=== PATIENT | female | born 1950 | race Caucasian/White ===

== ENCOUNTER 2022-01-07 12:25 | Inpatient (IN) ==
[~2022-01-07 12:25] MED LIST: GLUCAGON 1 MG VIAL IM PRN
[2022-01-07] MEDS ORDERED: DEXTROSE 10% 250 ML BAG IV PRN (12:30)
[2022-01-07 13:11] LABS: Basophils % 0.2 % (0.0-0.8); Eosinophils # 0.1 10*3/uL (0.0-0.87); Eosinophils % 0.9 % (0.00-10.9); Hematocrit 41.4 VOL% (35.7-47.0); Hemoglobin 13.7 GM/DL (12.0-16.0); Immature Granulocytes % 0.3 %; Immature Granulocytes Absolute 0.02 #; Lymphocytes # 1.3 10*3/uL (1.4-4.0); Lymphocytes % 23.2 % (21.3-54.2); Mean Corpuscular HGB Conc 33.1 GM/DL (32-36); Monocytes # 0.4 10*3/uL (0.11-0.8); Monocytes % 7.5 % (1.7-12.7); Neutrophils % 67.9 % (38.7-73.9); Platelet Count 208 T/CUMM (130-400); Red Cell Distribution Width 12.7 % (9.3-17.3); White Blood Count 5.7 T/CUMM (4-12)
[2022-01-07 13:36] LABS: Albumin 3.7 G/DL (3.4-5.0); Calcium 8.7 MG/DL (8.5-10.1); Osmolality,Calculated 281.4 MOS/KG (273-304); Total Protein 6.6 G/DL (6.4-8.2)
[2022-01-07] MEDS ORDERED: CLORAZEPATE 3.75 MG TABLET PO PRN (16:55)
[2022-01-07] MEDS: SODIUM CHLORIDE 0.9% 1,000 ML IV SCH (17:16)
[2022-01-07] MEDS: CHLORHEXIDINE 4% SOLN 118 ML BOTTLE TOP SCH ×2 (17:16→22:06)
[2022-01-07 18:28] LABS: Arterial Base Excess iSTAT 0 MMOL/L (-2.5-2.5); Arterial Bicarbonate iSTAT 24.7 MMOL/L (20-26); Arterial O2 Saturation iSTAT 96 % (95-100); Arterial PCO2 iSTAT 39 MM HG (35-48); Arterial PO2 iSTAT 81 MM HG (80-95); Arterial Total CO2 iSTAT 26 MMO/L (23-27); Arterial pH iSTAT 7.416 (7.35-7.45)
[2022-01-07] MEDS: CHLORHEXIDINE 0.12% ORAL RINSE 60 ML BOTTLE SWISH/SPIT SCH ×2 (18:48→20:33)
[2022-01-07] MEDS ORDERED: ACETAMINOPHEN 325 MG TABLET PO PRN (19:47)
[2022-01-07] MEDS ORDERED: PANTOPRAZOLE 40 MG TABLET PO SCH (21:00)
[2022-01-08] MEDS ORDERED: VANCOMYCIN 1,000 MG VIAL ONE (04:16)
[2022-01-08] MEDS: CHLORHEXIDINE 4% SOLN 118 ML BOTTLE TOP SCH (04:20)
[2022-01-08] MEDS ORDERED: VANCOMYCIN INJ 1,000 MG in SODIUM CHLORIDE 0.9% 250 ML IV ONE (05:00)
[2022-01-08] MEDS ORDERED: NITROGLYCERIN DRIP 50 MG/250 ML BOTTLE IV ONE (05:29)
[2022-01-08] MEDS ORDERED: PHENYLEPHRINE DRIP 20 MG/250 ML PREMIX IV ONE (05:34)
[2022-01-08] MEDS ORDERED: VECURONIUM 10 MG VIAL IV ONE ×5 (05:38→07:57)
[2022-01-08] MEDS ORDERED: CALCIUM CHLORIDE 1,000 MG/10 ML VIAL IV ONE ×2 (05:38→09:23)
[2022-01-08] MEDS ORDERED: AMINOCAPROIC ACID 5,000 MG/20 ML VIAL ONE (05:38)
[2022-01-08] MEDS ORDERED: ETOMIDATE 40 MG/20 ML VIAL IV ONE (05:38)
[2022-01-08] MEDS ORDERED: LIDOCAINE 2% 5 ML VIAL ONE ×2 (05:38→10:01)
[2022-01-08] MEDS ORDERED: SUFentanil 250 MCG/5 ML AMP ONE ×3 (05:39→07:59)
[2022-01-08] MEDS ORDERED: MIDAZOLAM 10 MG/2 ML VIAL ONE ×4 (05:39→07:59)
[2022-01-08] MEDS ORDERED: SEVOFLURANE 1 UNIT/15 MINUTE INH ONE (05:41)
[2022-01-08] MEDS ORDERED: SODIUM CHLORIDE 0.9% 250 ML IV ONE ×2 (05:48→08:47)
[2022-01-08] MEDS ORDERED: LACTATED RINGERS 1,000 ML IV ONE ×2 (05:48→13:00)
[2022-01-08] MEDS ORDERED: SODIUM CHLORIDE 0.9% 1,000 ML IV ONE (05:48)
[2022-01-08] MEDS ORDERED: PANTOPRAZOLE 40 MG TABLET PO ONE (06:00)
[2022-01-08] MEDS ORDERED: DIAZEPAM 5 MG TABLET PO ONE (06:00)
[2022-01-08] MEDS ORDERED: MINERAL OIL/PETROLATUM OPH OINT 3.5 GM TUBE ONE (06:10)
[2022-01-08] MEDS ORDERED: ePHEDrine 50 MG/ML VIAL ONE (07:18)
[2022-01-08 07:32] LABS: ABG Base Excess 0.6 MMOL/L (-2.5-2.5); ABG Oxygen Saturation 99.6 % (95-100); ABG PCO2 44.1 MM HG (35-48); ABG PH 7.379 (7.35-7.45); Glucose Heart Surgery 120 MG/DL (74-106); Hematocrit Heart Surgery 37.9 PERCENT (37-47); Hemoglobin Heart Surgery 12.3 G/DL (12.0-16.0); Ionized Calcium Arterial 1.14 MMOL/L (1.21-1.46); PCO2 Patient Temp Arterial 44.1 MMHG; PH Patient Temp Arterial 7.379; Patient Temperature 37 CELCIUS; Potassium Heart/CVR 3.4 MMOL/L (3.5-5.1); Sodium Heart/CVR 142 MMOL/L (135-145)
[2022-01-08 07:35] LABS: Bacteria,Urine Occasional /HPF (Few); Bilirubin,Urine Negative (Negative); Glucose,Urine (UA) Negative (Negative); Ketones,Urine Negative (Negative); Mucus,Urine Occasional /LPF (Occasional); Nitrite,Urine Negative (Negative); Protein,Urine Negative (Negative); RBC,Urine 2 /HPF (0-4); Urine Appearance Clear (Clear); Urine Color Yellow (Yellow); Urine pH 6.5 (4.5-8.0)
[2022-01-08 07:36] LABS: Blood, Urine Trace mg/dL (Negative); Urine Urobilinogen 0.2 eU/dL (<2.0)
[2022-01-08] MEDS ORDERED: AMIODARONE 150 MG/3 ML VIAL ONE ×3 (08:03→08:50)
[2022-01-08] MEDS ORDERED: POTASSIUM CHLORIDE RIDER 20 MEQ/100 ML PREMIX IV ONE (08:13)
[2022-01-08] MEDS ORDERED: SODIUM BICARBONATE 50 MEQ/50 ML VIAL IV ONE ×2 (08:13→10:03)
[2022-01-08] MEDS ORDERED: NITROPRUSSIDE 50 MG/2 ML VIAL ONE (08:13)
[2022-01-08] MEDS ORDERED: PHENYLEPHRINE DRIP 40 MG/250 ML PREMIX IV ONE (08:14)
[2022-01-08] MEDS ORDERED: CALCIUM CHLORIDE 1,000 MG/10 ML SYRINGE IV ONE (08:14)
[2022-01-08 08:34] LABS: Hematocrit Heart Surgery 27.8 PERCENT (37-47); PCO2 Patient Temp Venous 35.2 MM HG; PH Patient Temp Venous 7.469; PO2 Patient Temp Venous 41.1 MM HG; Potassium Heart/CVR 3.8 MMOL/L (3.5-5.1); VBG Base Excess 2.1 MEQ/L (0-4); VBG Oxygen Saturation 80.6 %; VBG PCO2 36.9 MMHG (41-51); VBG PH 7.454; VBG Total CO2 23.9 MMOL/L
[2022-01-08 09:02] LABS: Hematocrit Heart Surgery 30.3 PERCENT (37-47); Hemoglobin Heart Surgery 9.8 G/DL (12.0-16.0); PCO2 Patient Temp Venous 31.3 MM HG; PH Patient Temp Venous 7.51; PO2 Patient Temp Venous 35.9 MM HG; Potassium Heart/CVR 3.6 MMOL/L (3.5-5.1); VBG Base Excess 2.4 MEQ/L (0-4); VBG HCO3 26.2 MEQ/L (24-28); VBG Oxygen Saturation 81.2 %; VBG PCO2 36.1 MMHG (41-51); VBG PH 7.465; VBG PO2 44.3 MMHG (17-40); VBG Total CO2 23.7 MMOL/L
[2022-01-08] MEDS ORDERED: HEPARIN/NACL 0.9% 2 UNITS/ML 1,000 UNIT/500 ML BAG IV ONE (09:23)
[2022-01-08] MEDS ORDERED: AMIODARONE INJ 450 MG in DEXTROSE 5% 241 ML IV SCH (09:30)
[2022-01-08 09:55] LABS: ABG Base Excess 1.1 MMOL/L (-2.5-2.5); ABG HCO3 25.5 MMOL/L (20-26); ABG PCO2 31.9 MM HG (35-48); ABG PH 7.484 (7.35-7.45); ABG TCO2 21.5 MMOL/L (23-27); Glucose Heart Surgery 215 MG/DL (74-106); Hematocrit Heart Surgery 33.2 PERCENT (37-47); Hemoglobin Heart Surgery 10.8 G/DL (12.0-16.0); Ionized Calcium Arterial 1.26 MMOL/L (1.21-1.46); PCO2 Patient Temp Arterial 31.9 MMHG; PH Patient Temp Arterial 7.484; Patient Temperature 37 CELCIUS; Potassium Heart/CVR 3.6 MMOL/L (3.5-5.1); Sodium Heart/CVR 139 MMOL/L (135-145)
[2022-01-08] MEDS ORDERED: ALBUMIN 25% 25 GM/100 ML VIAL IV ONE (10:00)
[2022-01-08] MEDS ORDERED: MAGNESIUM SULFATE 5 GM/10 ML VIAL IV ONE (10:01)
[2022-01-08] MEDS ORDERED: HEPARIN 10,000 UNIT/10 ML VIAL ONE (10:02)
[2022-01-08] MEDS ORDERED: VECURONIUM 10 MG VIAL IV PRN ×2 (10:02)
[2022-01-08] MEDS ORDERED: ONDANSETRON 4 MG/2 ML VIAL IV PRN (10:02)
[2022-01-08] MEDS ORDERED: INSULIN REGULAR DRIP 100 ML IV SCH (10:02)
[2022-01-08] MEDS ORDERED: CALCIUM CHLORIDE 1,000 MG/10 ML SYRINGE IV PRN (10:02)
[2022-01-08] MEDS ORDERED: MIDAZOLAM 10 MG/2 ML VIAL IV PRN (10:02)
[2022-01-08] MEDS ORDERED: CHLORHEXIDINE 4% SOLN 118 ML BOTTLE TOP PRN (10:02)
[2022-01-08] MEDS ORDERED: DEXTROSE 5% KCL 20 MEQ 20 MEQ/1,000 ML BAG IV ONE (10:02)
[2022-01-08] MEDS ORDERED: NITROPRUSSIDE 100 MG in DEXTROSE 5% 250 ML IV PRN (10:02)
[2022-01-08] MEDS ORDERED: MIDAZOLAM 2 MG/2 ML VIAL IV PRN (10:02)
[2022-01-08] MEDS ORDERED: MAGNESIUM SULF RIDER 2 GM/50 ML PREMIX IV PRN (10:02)
[2022-01-08] MEDS ORDERED: methylPREDNISolone SOD SUC 1,000 MG/8 ML VIAL ONE (10:02)
[2022-01-08] MEDS ORDERED: HYDROmorphone 1 MG/1 ML SYRINGE IV PRN (10:02)
[2022-01-08] MEDS ORDERED: INSULIN REGULAR 100 UNIT/ML IV PRN (10:02)
[2022-01-08] MEDS ORDERED: INSULIN REGULAR 100 UNIT/ML IV ONE (10:02)
[2022-01-08] MEDS ORDERED: MAGNESIUM SULF RIDER 4 GM/100 ML PREMIX IV PRN (10:02)
[2022-01-08] MEDS ORDERED: PROTAMINE SULFATE 250 MG/25 ML VIAL IV ONE (10:02)
[2022-01-08] MEDS ORDERED: ACETAMINOPHEN 650 MG SUPP RECTAL PRN (10:02)
[2022-01-08] MEDS ORDERED: PHENYLEPHRINE DRIP 40 MG/250 ML PREMIX IV PRN (10:02)
[2022-01-08] MEDS ORDERED: MANNITOL 12.5 GM/50 ML VIAL IV ONE (10:03)
[2022-01-08] MEDS ORDERED: FUROSEMIDE 20 MG/2 ML VIAL ONE (10:03)
[2022-01-08] MEDS ORDERED: DEXTROSE 10% 250 ML BAG IV PRN ×2 (10:12)
[2022-01-08] MEDS: SODIUM CHLORIDE 0.45% 1,000 ML IV SCH ×2 (10:20)
[2022-01-08] MEDS ORDERED: POTASSIUM CHLORIDE 20 MEQ/10 ML VIAL ONE (10:26)
[2022-01-08 10:57] LABS: ABG Base Excess -0.5 MMOL/L (-2.5-2.5); ABG HCO3 24.1 MMOL/L (20-26); ABG PCO2 31.1 MM HG (35-48); ABG PH 7.466 (7.35-7.45); ABG TCO2 19.7 MMOL/L (23-27); Glucose Heart Surgery 181 MG/DL (74-106); Hematocrit Heart Surgery 37.2 PERCENT (37-47); Hemoglobin Heart Surgery 12.1 G/DL (12.0-16.0); Potassium Heart/CVR 3.5 MMOL/L (3.5-5.1)
[2022-01-08 10:59] LABS: Basophils % 0.3 % (0.0-0.8); Eosinophils # 0.1 10*3/uL (0.0-0.87); Eosinophils % 0.6 % (0.00-10.9); Hematocrit 36.7 VOL% (35.7-47.0); Immature Granulocytes % 1.2 %; Immature Granulocytes Absolute 0.12 #; Lymphocytes # 0.8 10*3/uL (1.4-4.0); Lymphocytes % 7.5 % (21.3-54.2); Mean Corpuscular HGB Conc 32.7 GM/DL (32-36); Mean Corpuscular Volume 92.2 FL (87-102); Mean Platelet Volume 9.9 FL (9.6-12.0); Monocytes # 0.5 10*3/uL (0.11-0.8); Monocytes % 4.9 % (1.7-12.7); Neutrophils % 85.5 % (38.7-73.9); Platelet Count 182 T/CUMM (130-400); Red Blood Count 3.98 MC/CUMM (3.8-5.5); Red Cell Distribution Width 12.7 % (9.3-17.3)
[2022-01-08 11:10] LABS: INR 1.1; PT Patient Result 12.4 SECS (10.5-12.0); Partial Thromboplastin Time 27.1 SECS (23.8-32.1)
[2022-01-08 11:18] LABS: CKMB % 7.63 %
[2022-01-08 11:21] LABS: Albumin 3.3 G/DL (3.4-5.0); Bilirubin,Total 1.9 MG/DL (0.20-1.00); Calcium 9.7 MG/DL (8.5-10.1); Potassium 3.5 MMOL/L (3.5-5.1); Total Protein 5.6 G/DL (6.4-8.2)
[2022-01-08] MEDS: CHLORHEXIDINE 0.12% ORAL RINSE 60 ML BOTTLE SWISH/SPIT SCH ×2 (11:22→21:10)
[2022-01-08] MEDS: SODIUM CHLORIDE 0.9% 1,000 ML IV SCH (11:22)
[2022-01-08] MEDS: POTASSIUM CHLORIDE RIDER 20 MEQ/100 ML PREMIX IV PRN ×4 (11:29→21:37)
[2022-01-08] MEDS: POTASSIUM CHLORIDE RIDER 10 MEQ/100 ML PREMIX IV PRN ×2 (12:00→13:48)
[2022-01-08 13:44] LABS: ABG Base Excess 0.5 MMOL/L (-2.5-2.5); ABG HCO3 24.9 MMOL/L (20-26); ABG Oxygen Saturation 99.2 % (95-100); ABG PCO2 29.8 MM HG (35-48); ABG PH 7.493 (7.35-7.45); Glucose Heart Surgery 186 MG/DL (74-106); Hematocrit Heart Surgery 38.4 PERCENT (37-47); Hemoglobin Heart Surgery 12.5 G/DL (12.0-16.0); Potassium Heart/CVR 3.5 MMOL/L (3.5-5.1)
[2022-01-08] MEDS: AMIODARONE INJ 450 MG in DEXTROSE 5% 241 ML IV SCH ×2 (15:30→19:31)
[2022-01-08] MEDS: KETOROLAC 30 MG/1 ML VIAL IV SCH ×2 (16:11→21:41)
[2022-01-08 19:29] LABS: ABG Base Excess 0.1 MMOL/L (-2.5-2.5); ABG HCO3 24.5 MMOL/L (20-26); ABG Oxygen Saturation 99.1 % (95-100); ABG PCO2 32.8 MM HG (35-48); ABG PH 7.459 (7.35-7.45); ABG TCO2 20.3 MMOL/L (23-27); Glucose Heart Surgery 161 MG/DL (74-106); Hematocrit Heart Surgery 39.1 PERCENT (37-47); Hemoglobin Heart Surgery 12.7 G/DL (12.0-16.0); Potassium Heart/CVR 3.7 MMOL/L (3.5-5.1)
[2022-01-08] MEDS: LACTATED RINGERS 250 ML IV PRN ×2 (19:30→21:00)
[2022-01-08] MEDS: ALBUMIN 5% 12.5 GM/250 ML VIAL IV PRN ×2 (19:48→23:14)
[2022-01-08 20:38] LABS: ABG Base Excess -0.6 MMOL/L (-2.5-2.5); ABG HCO3 23.9 MMOL/L (20-26); ABG Oxygen Saturation 98.6 % (95-100); ABG PCO2 40.4 MM HG (35-48); ABG PH 7.387 (7.35-7.45); ABG TCO2 21.5 MMOL/L (23-27); Glucose Heart Surgery 152 MG/DL (74-106); Hematocrit Heart Surgery 37.1 PERCENT (37-47); Hemoglobin Heart Surgery 12.1 G/DL (12.0-16.0); Potassium Heart/CVR 4.1 MMOL/L (3.5-5.1)
[2022-01-08 21:27] LABS: ABG HCO3 23.6 MMOL/L (20-26); ABG Oxygen Saturation 98.3 % (95-100); ABG PH 7.377 (7.35-7.45); ABG TCO2 21.4 MMOL/L (23-27); Glucose Heart Surgery 145 MG/DL (74-106); Hematocrit Heart Surgery 37.1 PERCENT (37-47); Hemoglobin Heart Surgery 12.1 G/DL (12.0-16.0); Potassium Heart/CVR 4.1 MMOL/L (3.5-5.1)
[2022-01-08] MEDS: VANCOMYCIN INJ 1,000 MG in SODIUM CHLORIDE 0.9% 250 ML IV SCH (22:09)
[2022-01-08 22:25] LABS: ABG Base Excess -1.9 MMOL/L (-2.5-2.5); ABG HCO3 22.8 MMOL/L (20-26); ABG PCO2 43.7 MM HG (35-48); ABG PH 7.346 (7.35-7.45); ABG TCO2 21.4 MMOL/L (23-27); Glucose Heart Surgery 143 MG/DL (74-106); Hematocrit Heart Surgery 35.7 PERCENT (37-47); Hemoglobin Heart Surgery 11.6 G/DL (12.0-16.0)
[2022-01-08] MEDS ORDERED: FUROSEMIDE 40 MG/4 ML VIAL IV ONE (23:54)
[2022-01-09 00:05] LABS: ABG Base Excess -3.3 MMOL/L (-2.5-2.5); ABG HCO3 21.7 MMOL/L (20-26); ABG Oxygen Saturation 96.8 % (95-100); ABG PCO2 52.3 MM HG (35-48); ABG PH 7.273 (7.35-7.45); Glucose Heart Surgery 140 MG/DL (74-106); Hemoglobin Heart Surgery 11.4 G/DL (12.0-16.0); Potassium Heart/CVR 4.5 MMOL/L (3.5-5.1)
[2022-01-09 02:13] LABS: ABG Base Excess -2.6 MMOL/L (-2.5-2.5); ABG HCO3 22.2 MMOL/L (20-26); ABG Oxygen Saturation 98.3 % (95-100); ABG PCO2 48.8 MM HG (35-48); ABG PH 7.303 (7.35-7.45); ABG TCO2 21.8 MMOL/L (23-27); Glucose Heart Surgery 126 MG/DL (74-106); Hemoglobin Heart Surgery 11.7 G/DL (12.0-16.0); Potassium Heart/CVR 4.2 MMOL/L (3.5-5.1)
[2022-01-09 02:54] LABS: CKMB % 6.02 %
[2022-01-09 02:58] LABS: High Sensitive Troponin I* 2337.8 ng/L (0-54)
[2022-01-09] MEDS: KETOROLAC 30 MG/1 ML VIAL IV SCH ×4 (04:14→21:08)
[2022-01-09 04:19] LABS: Basophils % 0.1 % (0.0-0.8); Hematocrit 35.5 VOL% (35.7-47.0); Hemoglobin 11.1 GM/DL (12.0-16.0); Immature Granulocytes % 0.6 %; Immature Granulocytes Absolute 0.07 #; Lymphocytes # 0.4 10*3/uL (1.4-4.0); Lymphocytes % 3.1 % (21.3-54.2); Mean Corpuscular HGB Conc 31.3 GM/DL (32-36); Mean Corpuscular Volume 97.3 FL (87-102); Mean Platelet Volume 10.6 FL (9.6-12.0); Monocytes # 0.7 10*3/uL (0.11-0.8); Monocytes % 5.8 % (1.7-12.7); Neutrophils % 90.4 % (38.7-73.9); Platelet Count 160 T/CUMM (130-400); Red Blood Count 3.65 MC/CUMM (3.8-5.5); Red Cell Distribution Width 13.1 % (9.3-17.3); White Blood Count 12.1 T/CUMM (4-12)
[2022-01-09 04:40] LABS: Albumin 3.6 G/DL (3.4-5.0); Bilirubin,Direct 0.24 MG/DL (0.0-0.20); Bilirubin,Total 1.1 MG/DL (0.20-1.00); Calcium 8.3 MG/DL (8.5-10.1); Potassium 4.5 MMOL/L (3.5-5.1); Total Protein 5.5 G/DL (6.4-8.2)
[2022-01-09 04:41] LABS: Lymphocytes 3 % (20-55); Total Cells Counted 100
[2022-01-09 04:42] LABS: Platelet Estimate Normal
[2022-01-09 04:53] LABS: CKMB % 6.61 %; High Sensitive Troponin I* 2125.5 ng/L (0-54)
[2022-01-09] MEDS: AMIODARONE INJ 450 MG in DEXTROSE 5% 241 ML IV SCH (06:14)
[2022-01-09] MEDS ORDERED: INSULIN REGULAR 100 UNIT/ML SUBCUT SCH (07:30)
[2022-01-09] MEDS: VANCOMYCIN INJ 1,000 MG in SODIUM CHLORIDE 0.9% 250 ML IV SCH (10:30)
[2022-01-09] MEDS ORDERED: POTASSIUM CHLORIDE 20 MEQ TABLET PO PRN (11:00)
[2022-01-09] MEDS ORDERED: ALUMINUM/MAGNES/SIMETH MAX STR 30 ML UDCUP PO PRN (11:00)
[2022-01-09] MEDS ORDERED: DEXTROSE 50% 25 GM/50 ML VIAL IV PRN (11:00)
[2022-01-09] MEDS ORDERED: ZALEPLON 5 MG CAPSULE PO PRN (11:00)
[2022-01-09] MEDS ORDERED: GLUCAGON 1 MG VIAL IM PRN ×2 (11:00)
[2022-01-09] MEDS ORDERED: MAGNESIUM HYDROXIDE SUSP 30 ML UDCUP PO PRN (11:00)
[2022-01-09] MEDS ORDERED: MAGNESIUM SULF RIDER 2 GM/50 ML PREMIX IV PRN (11:00)
[2022-01-09] MEDS ORDERED: SODIUM CHLOR 0.45% KCL 20 MEQ 20 MEQ/1,000 ML BAG IV SCH (11:00)
[2022-01-09] MEDS ORDERED: MAGNESIUM SULF RIDER 4 GM/100 ML PREMIX IV PRN (11:00)
[2022-01-09] MEDS ORDERED: DEXTROSE 10% 250 ML BAG IV PRN (11:12)
[2022-01-09] MEDS: ACETAMINOPHEN 500 MG TABLET PO PRN (12:22)
[2022-01-09] MEDS: AMIODARONE 200 MG TABLET PO SCH ×2 (12:30→21:08)
[2022-01-09] MEDS: ASPIRIN EC 325 MG TABLET PO SCH (13:08)
[2022-01-09] MEDS: PANTOPRAZOLE 40 MG TABLET PO SCH (13:08)
[2022-01-09] MEDS: FERROUS SULFATE 325 MG TABLET PO SCH (13:08)
[2022-01-09] MEDS: CETIRIZINE 10 MG TABLET PO SCH (13:09)
[2022-01-09] MEDS: DOCUSATE SODIUM 100 MG CAPSULE PO SCH (13:09)
[2022-01-09] MEDS: CHLORHEXIDINE 0.12% ORAL RINSE 60 ML BOTTLE SWISH/SPIT SCH ×3 (13:11→21:08)
[2022-01-09] MEDS: LOSARTAN 25 MG TABLET PO SCH (13:11)
[2022-01-09] MEDS: oxyCODONE/ACETAMINOPHEN 5-325 MG TABLET PO PRN (13:30)
[2022-01-09] MEDS: SODIUM CHLORIDE 0.45% 1,000 ML IV SCH ×2 (15:54→15:55)
[2022-01-10] MEDS: KETOROLAC 30 MG/1 ML VIAL IV SCH ×2 (04:21→09:13)
[2022-01-10] MEDS ORDERED: FUROSEMIDE 40 MG/4 ML VIAL IV ONE (06:00)
[2022-01-10 08:50] LABS: Basophils % 0.1 % (0.0-0.8); Hematocrit 33.5 VOL% (35.7-47.0); Hemoglobin 10.4 GM/DL (12.0-16.0); Immature Granulocytes % 1.4 %; Immature Granulocytes Absolute 0.17 #; Lymphocytes % 8.6 % (21.3-54.2); Mean Corpuscular Volume 98.2 FL (87-102); Mean Platelet Volume 10.7 FL (9.6-12.0); Monocytes # 1.1 10*3/uL (0.11-0.8); Monocytes % 9.4 % (1.7-12.7); Neutrophils % 80.5 % (38.7-73.9); Platelet Count 151 T/CUMM (130-400); Red Blood Count 3.41 MC/CUMM (3.8-5.5); White Blood Count 11.8 T/CUMM (4-12)
[2022-01-10 09:12] LABS: Alanine Aminotransferase 31 U/L (13-56); Albumin 3.3 G/DL (3.4-5.0); Alkaline Phosphatase 50 U/L (45-117); Aspartate Amino Transferase 26 U/L (0-37); Bilirubin,Indirect 0.6 MG/DL (0.0-1.0); Blood Urea Nitrogen 38 MG/DL (7-18); Calcium 8.1 MG/DL (8.5-10.1); Carbon Dioxide 25 MMOL/L (21-32); Chloride 107 MMOL/L (98-107); Estimated Glom Filtration Rate 50 ML/MIN; Glucose 111 MG/DL (74-106); Osmolality,Calculated 282.8 MOS/KG (273-304); Potassium 4.3 MMOL/L (3.5-5.1); Sodium 137 MMOL/L (136-145); Total Protein 5.7 G/DL (6.4-8.2)
[2022-01-10] MEDS: FERROUS SULFATE 325 MG TABLET PO SCH (09:12)
[2022-01-10] MEDS: ASPIRIN EC 325 MG TABLET PO SCH (09:12)
[2022-01-10] MEDS: PANTOPRAZOLE 40 MG TABLET PO SCH (09:12)
[2022-01-10] MEDS: CETIRIZINE 10 MG TABLET PO SCH (09:12)
[2022-01-10] MEDS: AMIODARONE 200 MG TABLET PO SCH ×2 (09:12→20:07)
[2022-01-10] MEDS: DOCUSATE SODIUM 100 MG CAPSULE PO SCH (09:12)
[2022-01-10] MEDS: CHLORHEXIDINE 0.12% ORAL RINSE 60 ML BOTTLE SWISH/SPIT SCH ×2 (09:16→20:07)
[2022-01-10] MEDS: ONDANSETRON 4 MG/2 ML VIAL IV PRN ×2 (11:37→17:26)
[2022-01-10] MEDS: ACETAMINOPHEN 500 MG TABLET PO PRN (15:32)
[2022-01-10] MEDS: oxyCODONE/ACETAMINOPHEN 5-325 MG TABLET PO PRN ×2 (17:26→22:30)
[2022-01-11] MEDS: oxyCODONE/ACETAMINOPHEN 5-325 MG TABLET PO PRN ×4 (03:00→19:40)
[2022-01-11 05:05] LABS: Basophils % 0.1 % (0.0-0.8); Eosinophils # 0.1 10*3/uL (0.0-0.87); Hematocrit 33.3 VOL% (35.7-47.0); Hemoglobin 10.2 GM/DL (12.0-16.0); Immature Granulocytes % 0.5 %; Immature Granulocytes Absolute 0.05 #; Lymphocytes # 1.3 10*3/uL (1.4-4.0); Lymphocytes % 13.6 % (21.3-54.2); Mean Corpuscular HGB Conc 30.6 GM/DL (32-36); Mean Corpuscular Volume 98.2 FL (87-102); Mean Platelet Volume 10.7 FL (9.6-12.0); Monocytes % 11.1 % (1.7-12.7); Neutrophils % 73.7 % (38.7-73.9); Platelet Count 144 T/CUMM (130-400); Red Blood Count 3.39 MC/CUMM (3.8-5.5); Red Cell Distribution Width 12.9 % (9.3-17.3); White Blood Count 9.3 T/CUMM (4-12)
[2022-01-11 05:29] LABS: Alanine Aminotransferase 30 U/L (13-56); Alkaline Phosphatase 52 U/L (45-117); Aspartate Amino Transferase 21 U/L (0-37); Bilirubin,Indirect 0.6 MG/DL (0.0-1.0); Blood Urea Nitrogen 36 MG/DL (7-18); Calcium 8.4 MG/DL (8.5-10.1); Carbon Dioxide 26 MMOL/L (21-32); Chloride 107 MMOL/L (98-107); Estimated Glom Filtration Rate 69 ML/MIN; Glucose 105 MG/DL (74-106); Osmolality,Calculated 280.8 MOS/KG (273-304); Potassium 4.5 MMOL/L (3.5-5.1); Sodium 137 MMOL/L (136-145); Total Protein 5.6 G/DL (6.4-8.2)
[2022-01-11] MEDS: DOCUSATE SODIUM 100 MG CAPSULE PO SCH (09:18)
[2022-01-11] MEDS: FERROUS SULFATE 325 MG TABLET PO SCH (09:18)
[2022-01-11] MEDS: AMIODARONE 200 MG TABLET PO SCH ×2 (09:18→20:28)
[2022-01-11] MEDS: CHLORHEXIDINE 0.12% ORAL RINSE 60 ML BOTTLE SWISH/SPIT SCH ×2 (09:18→20:28)
[2022-01-11] MEDS: POLYETHYLENE GLYCOL POWDER 17 GM PACK PO SCH (09:18)
[2022-01-11] MEDS: CETIRIZINE 10 MG TABLET PO SCH (09:18)
[2022-01-11] MEDS: ASPIRIN EC 325 MG TABLET PO SCH (09:18)
[2022-01-11] MEDS: PANTOPRAZOLE 40 MG TABLET PO SCH (09:18)
[2022-01-11] MEDS: ONDANSETRON 4 MG/2 ML VIAL IV PRN ×3 (09:25→20:28)
[2022-01-12 05:43] LABS: Basophils % 0.1 % (0.0-0.8); Eosinophils # 0.2 10*3/uL (0.0-0.87); Eosinophils % 2.3 % (0.00-10.9); Hemoglobin 10.1 GM/DL (12.0-16.0); Immature Granulocytes % 0.7 %; Immature Granulocytes Absolute 0.05 #; Lymphocytes # 1.3 10*3/uL (1.4-4.0); Lymphocytes % 17.3 % (21.3-54.2); Mean Corpuscular HGB Conc 31.6 GM/DL (32-36); Mean Corpuscular Volume 97.3 FL (87-102); Mean Platelet Volume 10.8 FL (9.6-12.0); Monocytes # 0.7 10*3/uL (0.11-0.8); Monocytes % 9.5 % (1.7-12.7); Neutrophils % 70.1 % (38.7-73.9); Platelet Count 149 T/CUMM (130-400); Red Blood Count 3.29 MC/CUMM (3.8-5.5); Red Cell Distribution Width 12.7 % (9.3-17.3); White Blood Count 7.3 T/CUMM (4-12)
[2022-01-12 06:15] LABS: Calcium 8.6 MG/DL (8.5-10.1); Osmolality,Calculated 279.7 MOS/KG (273-304); Potassium 4.5 MMOL/L (3.5-5.1)
[2022-01-12] MEDS: oxyCODONE/ACETAMINOPHEN 5-325 MG TABLET PO PRN (07:47)
[2022-01-12] MEDS: ONDANSETRON 4 MG/2 ML VIAL IV PRN ×2 (07:49→12:42)
[2022-01-12] MEDS ORDERED: FUROSEMIDE 40 MG/4 ML VIAL IV ONE (08:22)
[2022-01-12 08:24] LABS: Amorphous Crystals,Urine Occasional /HPF (Few); Bacteria,Urine Occasional /HPF (Few); Mucus,Urine Occasional /LPF (Occasional); RBC,Urine 2 /HPF (0-4); Squamous Epithelial Cell,Urine Occasional /HPF (0-10)
[2022-01-12 08:25] LABS: Bilirubin,Urine Negative (Negative); Glucose,Urine (UA) Negative (Negative); Ketones,Urine Negative (Negative); Nitrite,Urine Negative (Negative); Protein,Urine Negative (Negative); Urine Appearance Clear (Clear); Urine Color Yellow (Yellow); Urine Specific Gravity 1.015 (1.001-1.035)
[2022-01-12 08:26] LABS: Blood, Urine Trace mg/dL (Negative); Urine Urobilinogen 0.2 eU/dL (<2.0)
[2022-01-12] MEDS: DOCUSATE SODIUM 100 MG CAPSULE PO SCH (09:39)
[2022-01-12] MEDS: CETIRIZINE 10 MG TABLET PO SCH (09:39)
[2022-01-12] MEDS: FERROUS SULFATE 325 MG TABLET PO SCH (09:39)
[2022-01-12] MEDS: POLYETHYLENE GLYCOL POWDER 17 GM PACK PO SCH (09:40)
[2022-01-12] MEDS: PANTOPRAZOLE 40 MG TABLET PO SCH (09:40)
[2022-01-12] MEDS: ASPIRIN EC 325 MG TABLET PO SCH (09:40)
[2022-01-12] MEDS: AMIODARONE 200 MG TABLET PO SCH ×2 (09:40→21:51)
[2022-01-12] MEDS: CHLORHEXIDINE 0.12% ORAL RINSE 60 ML BOTTLE SWISH/SPIT SCH ×2 (09:46→21:51)
[2022-01-12] MEDS ORDERED: LACTULOSE 20 GM/30 ML UDCUP PO PRN (10:15)
[2022-01-12] MEDS: ACETAMINOPHEN 500 MG TABLET PO PRN (23:16)
[2022-01-13 05:45] LABS: Basophils % 0.3 % (0.0-0.8); Eosinophils # 0.2 10*3/uL (0.0-0.87); Eosinophils % 2.7 % (0.00-10.9); Hemoglobin 10.1 GM/DL (12.0-16.0); Immature Granulocytes % 0.8 %; Immature Granulocytes Absolute 0.05 #; Lymphocytes % 15.4 % (21.3-54.2); Mean Corpuscular HGB Conc 31.6 GM/DL (32-36); Mean Corpuscular Volume 97.9 FL (87-102); Mean Platelet Volume 10.7 FL (9.6-12.0); Monocytes # 0.7 10*3/uL (0.11-0.8); Monocytes % 10.9 % (1.7-12.7); Neutrophils % 69.9 % (38.7-73.9); Platelet Count 172 T/CUMM (130-400); Red Blood Count 3.27 MC/CUMM (3.8-5.5); Red Cell Distribution Width 12.5 % (9.3-17.3); White Blood Count 6.4 T/CUMM (4-12)
[2022-01-13 06:14] LABS: Alanine Aminotransferase 42 U/L (13-56); Albumin 2.7 G/DL (3.4-5.0); Alkaline Phosphatase 81 U/L (45-117); Aspartate Amino Transferase 20 U/L (0-37); Bilirubin,Indirect 0.9 MG/DL (0.0-1.0); Blood Urea Nitrogen 17 MG/DL (7-18); Calcium 8.1 MG/DL (8.5-10.1); Carbon Dioxide 30 MMOL/L (21-32); Chloride 107 MMOL/L (98-107); Estimated Glom Filtration Rate 107 ML/MIN; Glucose 103 MG/DL (74-106); Osmolality,Calculated 278.5 MOS/KG (273-304); Potassium 3.9 MMOL/L (3.5-5.1); Sodium 139 MMOL/L (136-145); Total Protein 5.4 G/DL (6.4-8.2)
[2022-01-13] MEDS ORDERED: oxyCODONE/ACETAMINOPHEN 5-325 MG TABLET PO PRN (08:29)
[2022-01-13] MEDS: DOCUSATE SODIUM 100 MG CAPSULE PO SCH (09:06)
[2022-01-13] MEDS: CETIRIZINE 10 MG TABLET PO SCH (09:06)
[2022-01-13] MEDS: PANTOPRAZOLE 40 MG TABLET PO SCH (09:06)
[2022-01-13] MEDS: FERROUS SULFATE 325 MG TABLET PO SCH (09:07)
[2022-01-13] MEDS: ASPIRIN EC 325 MG TABLET PO SCH (09:07)
[2022-01-13] MEDS: POLYETHYLENE GLYCOL POWDER 17 GM PACK PO SCH (09:08)
[2022-01-13] MEDS: CHLORHEXIDINE 0.12% ORAL RINSE 60 ML BOTTLE SWISH/SPIT SCH ×2 (09:08→21:20)
[2022-01-13] MEDS: ACETAMINOPHEN 500 MG TABLET PO PRN ×2 (11:57→18:45)
[2022-01-14] MEDS: ACETAMINOPHEN 500 MG TABLET PO PRN ×4 (01:47→21:22)
[2022-01-14 04:51] LABS: Basophils % 0.5 % (0.0-0.8); Eosinophils # 0.2 10*3/uL (0.0-0.87); Eosinophils % 2.7 % (0.00-10.9); Hematocrit 31.1 VOL% (35.7-47.0); Immature Granulocytes % 1.1 %; Immature Granulocytes Absolute 0.07 #; Lymphocytes # 1.1 10*3/uL (1.4-4.0); Lymphocytes % 17.6 % (21.3-54.2); Mean Corpuscular HGB Conc 32.2 GM/DL (32-36); Mean Corpuscular Volume 94.2 FL (87-102); Mean Platelet Volume 10.3 FL (9.6-12.0); Monocytes # 0.7 10*3/uL (0.11-0.8); Monocytes % 10.8 % (1.7-12.7); Neutrophils % 67.3 % (38.7-73.9); Platelet Count 199 T/CUMM (130-400); Red Cell Distribution Width 12.4 % (9.3-17.3); White Blood Count 6.4 T/CUMM (4-12)
[2022-01-14 05:14] LABS: Alanine Aminotransferase 40 U/L (13-56); Albumin 2.6 G/DL (3.4-5.0); Alkaline Phosphatase 84 U/L (45-117); Aspartate Amino Transferase 17 U/L (0-37); Bilirubin,Indirect 0.7 MG/DL (0.0-1.0); Blood Urea Nitrogen 14 MG/DL (7-18); Carbon Dioxide 31 MMOL/L (21-32); Chloride 106 MMOL/L (98-107); Estimated Glom Filtration Rate 113 ML/MIN; Glucose 110 MG/DL (74-106); Osmolality,Calculated 278.5 MOS/KG (273-304); Sodium 139 MMOL/L (136-145); Total Protein 5.3 G/DL (6.4-8.2)
[2022-01-14] MEDS: PANTOPRAZOLE 40 MG TABLET PO SCH (09:24)
[2022-01-14] MEDS: ASPIRIN EC 325 MG TABLET PO SCH (09:24)
[2022-01-14] MEDS: DOCUSATE SODIUM 100 MG CAPSULE PO SCH (09:25)
[2022-01-14] MEDS: FERROUS SULFATE 325 MG TABLET PO SCH (09:25)
[2022-01-14] MEDS: CETIRIZINE 10 MG TABLET PO SCH (09:25)
[2022-01-14] MEDS: POLYETHYLENE GLYCOL POWDER 17 GM PACK PO SCH (09:26)
[2022-01-14] MEDS: CHLORHEXIDINE 0.12% ORAL RINSE 60 ML BOTTLE SWISH/SPIT SCH ×2 (09:26→20:19)
[2022-01-14] MEDS: LOSARTAN 25 MG TABLET PO SCH (09:31)
[2022-01-15] MEDS: ACETAMINOPHEN 500 MG TABLET PO PRN ×3 (03:25→21:17)
[2022-01-15 05:24] LABS: Basophils % 0.6 % (0.0-0.8); Eosinophils # 0.2 10*3/uL (0.0-0.87); Eosinophils % 2.4 % (0.00-10.9); Hematocrit 34.1 VOL% (35.7-47.0); Hemoglobin 10.7 GM/DL (12.0-16.0); Immature Granulocytes % 1.1 %; Immature Granulocytes Absolute 0.08 #; Lymphocytes # 1.3 10*3/uL (1.4-4.0); Lymphocytes % 18.5 % (21.3-54.2); Mean Corpuscular HGB Conc 31.4 GM/DL (32-36); Mean Corpuscular Volume 96.3 FL (87-102); Mean Platelet Volume 10.3 FL (9.6-12.0); Monocytes # 0.7 10*3/uL (0.11-0.8); Monocytes % 10.4 % (1.7-12.7); Platelet Count 222 T/CUMM (130-400); Red Blood Count 3.54 MC/CUMM (3.8-5.5); Red Cell Distribution Width 12.4 % (9.3-17.3)
[2022-01-15 05:40] LABS: Calcium 8.2 MG/DL (8.5-10.1); Osmolality,Calculated 282.1 MOS/KG (273-304); Potassium 3.8 MMOL/L (3.5-5.1)
[2022-01-15] MEDS ORDERED: AMIODARONE INJ 150 MG in DEXTROSE 5% 100 ML IV ONE (06:15)
[2022-01-15] MEDS: AMIODARONE INJ 450 MG in DEXTROSE 5% 241 ML IV SCH ×2 (06:46→23:34)
[2022-01-15] MEDS: CHLORHEXIDINE 0.12% ORAL RINSE 60 ML BOTTLE SWISH/SPIT SCH ×2 (08:38→21:17)
[2022-01-15] MEDS: APIXABAN 2.5 MG TABLET PO SCH ×2 (08:39→21:15)
[2022-01-15] MEDS: LOSARTAN 25 MG TABLET PO SCH (08:39)
[2022-01-15] MEDS: PANTOPRAZOLE 40 MG TABLET PO SCH (08:39)
[2022-01-15] MEDS: FERROUS SULFATE 325 MG TABLET PO SCH (08:39)
[2022-01-15] MEDS: CETIRIZINE 10 MG TABLET PO SCH (08:39)
[2022-01-15] MEDS: DOCUSATE SODIUM 100 MG CAPSULE PO SCH (08:39)
[2022-01-15] MEDS: ASPIRIN EC 325 MG TABLET PO SCH (08:39)
[2022-01-15] MEDS: POLYETHYLENE GLYCOL POWDER 17 GM PACK PO SCH (08:40)
[2022-01-16 03:45] LABS: Basophils % 0.3 % (0.0-0.8); Eosinophils # 0.2 10*3/uL (0.0-0.87); Eosinophils % 2.9 % (0.00-10.9); Hematocrit 33.9 VOL% (35.7-47.0); Hemoglobin 10.7 GM/DL (12.0-16.0); Immature Granulocytes % 1.5 %; Immature Granulocytes Absolute 0.11 #; Lymphocytes # 1.5 10*3/uL (1.4-4.0); Lymphocytes % 20.3 % (21.3-54.2); Mean Corpuscular HGB Conc 31.6 GM/DL (32-36); Mean Corpuscular Volume 95.5 FL (87-102); Mean Platelet Volume 9.9 FL (9.6-12.0); Monocytes # 0.8 10*3/uL (0.11-0.8); Monocytes % 10.3 % (1.7-12.7); Neutrophils % 64.7 % (38.7-73.9); Platelet Count 253 T/CUMM (130-400); Red Blood Count 3.55 MC/CUMM (3.8-5.5); Red Cell Distribution Width 12.8 % (9.3-17.3); White Blood Count 7.5 T/CUMM (4-12)
[2022-01-16 04:26] LABS: Calcium 8.2 MG/DL (8.5-10.1); Osmolality,Calculated 278.4 MOS/KG (273-304)
[2022-01-16] MEDS: ACETAMINOPHEN 500 MG TABLET PO PRN ×2 (04:56→17:09)
[2022-01-16] MEDS ORDERED: KETOROLAC 30 MG/1 ML VIAL IV PRN (07:35)
[2022-01-16] MEDS ORDERED: KETOROLAC 30 MG/1 ML VIAL IV SCH (08:00)
[2022-01-16] MEDS ORDERED: FUROSEMIDE 40 MG/4 ML VIAL IV ONE (08:00)
[2022-01-16] MEDS: PANTOPRAZOLE 40 MG TABLET PO SCH (08:39)
[2022-01-16] MEDS: ASPIRIN EC 81 MG TABLET PO SCH (08:40)
[2022-01-16] MEDS: FERROUS SULFATE 325 MG TABLET PO SCH (08:40)
[2022-01-16] MEDS: CETIRIZINE 10 MG TABLET PO SCH (08:40)
[2022-01-16] MEDS: APIXABAN 2.5 MG TABLET PO SCH ×2 (08:40→21:08)
[2022-01-16] MEDS: LOSARTAN 25 MG TABLET PO SCH (08:40)
[2022-01-16] MEDS: DOCUSATE SODIUM 100 MG CAPSULE PO SCH (08:40)
[2022-01-16] MEDS: CHLORHEXIDINE 0.12% ORAL RINSE 60 ML BOTTLE SWISH/SPIT SCH ×2 (08:41→21:08)
[2022-01-16] MEDS: POLYETHYLENE GLYCOL POWDER 17 GM PACK PO SCH (08:41)
[2022-01-16] MEDS: AMIODARONE 200 MG TABLET PO SCH ×2 (08:47→21:08)
[2022-01-16] MEDS: ASCORBIC ACID 500 MG TABLET PO SCH ×2 (08:53→21:08)
[2022-01-16] MEDS ORDERED: ROSUVASTATIN 20 MG TABLET PO SCH (09:00)
[2022-01-16] MEDS: AMIODARONE INJ 450 MG in DEXTROSE 5% 241 ML IV SCH (14:33)
[2022-01-17 06:50] LABS: Basophils % 0.3 % (0.0-0.8); Eosinophils # 0.2 10*3/uL (0.0-0.87); Eosinophils % 2.5 % (0.00-10.9); Hematocrit 31.3 VOL% (35.7-47.0); Immature Granulocytes % 1.2 %; Immature Granulocytes Absolute 0.07 #; Lymphocytes % 16.8 % (21.3-54.2); Mean Corpuscular HGB Conc 31.9 GM/DL (32-36); Mean Corpuscular Volume 94.6 FL (87-102); Mean Platelet Volume 9.5 FL (9.6-12.0); Monocytes # 0.7 10*3/uL (0.11-0.8); Monocytes % 11.1 % (1.7-12.7); Neutrophils % 68.1 % (38.7-73.9); Platelet Count 237 T/CUMM (130-400); Red Blood Count 3.31 MC/CUMM (3.8-5.5)
[2022-01-17 07:06] LABS: Calcium 8.3 MG/DL (8.5-10.1); Osmolality,Calculated 278.4 MOS/KG (273-304); Potassium 3.9 MMOL/L (3.5-5.1)
[2022-01-17] MEDS ORDERED: FUROSEMIDE 40 MG/4 ML VIAL IV ONE (08:02)
[2022-01-17] MEDS: AMIODARONE 200 MG TABLET PO SCH ×2 (10:25→21:21)
[2022-01-17] MEDS: FERROUS SULFATE 325 MG TABLET PO SCH (10:25)
[2022-01-17] MEDS: PANTOPRAZOLE 40 MG TABLET PO SCH (10:25)
[2022-01-17] MEDS: DOCUSATE SODIUM 100 MG CAPSULE PO SCH (10:25)
[2022-01-17] MEDS: LOSARTAN 25 MG TABLET PO SCH (10:25)
[2022-01-17] MEDS: CETIRIZINE 10 MG TABLET PO SCH (10:26)
[2022-01-17] MEDS: ASCORBIC ACID 500 MG TABLET PO SCH ×2 (10:26→21:21)
[2022-01-17] MEDS: APIXABAN 2.5 MG TABLET PO SCH ×2 (10:26→21:21)
[2022-01-17] MEDS: ASPIRIN EC 81 MG TABLET PO SCH (10:26)
[2022-01-17] MEDS: CHLORHEXIDINE 0.12% ORAL RINSE 60 ML BOTTLE SWISH/SPIT SCH ×2 (10:45→21:20)
[2022-01-17] MEDS: POLYETHYLENE GLYCOL POWDER 17 GM PACK PO SCH (11:24)
[2022-01-17] MEDS: LEVALBUTEROL 0.63 MG/3 ML NEB RESP TX SCH (15:19)
[2022-01-17] MEDS: ACETAMINOPHEN 500 MG TABLET PO PRN (21:23)
[2022-01-18] MEDS: LEVALBUTEROL 0.63 MG/3 ML NEB RESP TX SCH ×5 (00:08→19:50)
[2022-01-18 06:45] LABS: Basophils % 0.2 % (0.0-0.8); Eosinophils # 0.1 10*3/uL (0.0-0.87); Eosinophils % 2.5 % (0.00-10.9); Hematocrit 31.3 VOL% (35.7-47.0); Immature Granulocytes % 1.5 %; Immature Granulocytes Absolute 0.08 #; Lymphocytes # 1.2 10*3/uL (1.4-4.0); Lymphocytes % 21.5 % (21.3-54.2); Mean Corpuscular HGB Conc 31.9 GM/DL (32-36); Mean Corpuscular Volume 94.8 FL (87-102); Mean Platelet Volume 10.2 FL (9.6-12.0); Monocytes # 0.5 10*3/uL (0.11-0.8); Monocytes % 9.8 % (1.7-12.7); Neutrophils % 64.5 % (38.7-73.9); Platelet Count 244 T/CUMM (130-400); Red Cell Distribution Width 13.2 % (9.3-17.3); White Blood Count 5.5 T/CUMM (4-12)
[2022-01-18 07:03] LABS: Calcium 8.5 MG/DL (8.5-10.1); Osmolality,Calculated 278.4 MOS/KG (273-304); Potassium 3.4 MMOL/L (3.5-5.1)
[2022-01-18] MEDS ORDERED: POTASSIUM CHLORIDE 20 MEQ TABLET PO ONE (07:33)
[2022-01-18] MEDS: CETIRIZINE 10 MG TABLET PO SCH (10:15)
[2022-01-18] MEDS: ASCORBIC ACID 500 MG TABLET PO SCH ×2 (10:17→21:05)
[2022-01-18] MEDS: FERROUS SULFATE 325 MG TABLET PO SCH (10:18)
[2022-01-18] MEDS: ASPIRIN EC 81 MG TABLET PO SCH (10:18)
[2022-01-18] MEDS: PANTOPRAZOLE 40 MG TABLET PO SCH (10:18)
[2022-01-18] MEDS: AMIODARONE 200 MG TABLET PO SCH ×2 (10:19→21:05)
[2022-01-18] MEDS: ACETAMINOPHEN 500 MG TABLET PO PRN ×3 (10:20→22:31)
[2022-01-18] MEDS: APIXABAN 2.5 MG TABLET PO SCH ×2 (10:20→21:05)
[2022-01-18] MEDS: LOSARTAN 25 MG TABLET PO SCH (10:20)
[2022-01-18] MEDS: CHLORHEXIDINE 0.12% ORAL RINSE 60 ML BOTTLE SWISH/SPIT SCH ×2 (10:22→21:11)
[2022-01-18] MEDS: POLYETHYLENE GLYCOL POWDER 17 GM PACK PO SCH (10:24)
[2022-01-18] MEDS: DOCUSATE SODIUM 100 MG CAPSULE PO SCH (10:24)
[2022-01-18] MEDS ORDERED: SODIUM CHLORIDE 0.9% 1,000 ML IV SCH (11:00)
[2022-01-18 11:24] LABS: Calcium 8.7 MG/DL (8.5-10.1); Osmolality,Calculated 278.5 MOS/KG (273-304); Potassium 4.1 MMOL/L (3.5-5.1)
[2022-01-19] MEDS: LEVALBUTEROL 0.63 MG/3 ML NEB RESP TX SCH ×2 (00:53→07:06)
[2022-01-19] MEDS ORDERED: SODIUM CHLORIDE 0.9% 1,000 ML IV SCH (05:00)
[2022-01-19 05:07] LABS: Basophils % 0.5 % (0.0-0.8); Eosinophils # 0.2 10*3/uL (0.0-0.87); Eosinophils % 2.6 % (0.00-10.9); Hemoglobin 8.8 GM/DL (12.0-16.0); Immature Granulocytes % 1.4 %; Immature Granulocytes Absolute 0.08 #; Lymphocytes # 1.2 10*3/uL (1.4-4.0); Lymphocytes % 20.8 % (21.3-54.2); Mean Corpuscular HGB Conc 31.4 GM/DL (32-36); Mean Corpuscular Volume 96.6 FL (87-102); Mean Platelet Volume 10.4 FL (9.6-12.0); Monocytes # 0.6 10*3/uL (0.11-0.8); Monocytes % 9.5 % (1.7-12.7); Neutrophils % 65.2 % (38.7-73.9); Platelet Count 157 T/CUMM (130-400); Red Cell Distribution Width 13.1 % (9.3-17.3); White Blood Count 5.8 T/CUMM (4-12)
[2022-01-19 05:39] LABS: Calcium 8.3 MG/DL (8.5-10.1); Osmolality,Calculated 278.4 MOS/KG (273-304); Potassium 3.8 MMOL/L (3.5-5.1)
[2022-01-19 08:35] VITALS: BP 123/65
[2022-01-19] MEDS: FERROUS SULFATE 325 MG TABLET PO SCH (09:11)
[2022-01-19] MEDS: APIXABAN 2.5 MG TABLET PO SCH (09:11)
[2022-01-19] MEDS: LOSARTAN 25 MG TABLET PO SCH (09:11)
[2022-01-19] MEDS: PANTOPRAZOLE 40 MG TABLET PO SCH (09:11)
[2022-01-19] MEDS: CHLORHEXIDINE 0.12% ORAL RINSE 60 ML BOTTLE SWISH/SPIT SCH (09:11)
[2022-01-19] MEDS: ASPIRIN EC 81 MG TABLET PO SCH (09:11)
[2022-01-19] MEDS: AMIODARONE 200 MG TABLET PO SCH (09:11)
[2022-01-19] MEDS: CETIRIZINE 10 MG TABLET PO SCH (09:11)
[2022-01-19] MEDS: ASCORBIC ACID 500 MG TABLET PO SCH (09:11)
[2022-01-19] MEDS: POLYETHYLENE GLYCOL POWDER 17 GM PACK PO SCH (10:17)
[2022-01-19] MEDS: DOCUSATE SODIUM 100 MG CAPSULE PO SCH (10:17)
== END 2022-01-19 12:11 | disposition home health service (06) | DRG 219 ==
LOC: N.TELEN 12:25 → N.CVR 01-08 10:08 → N.TELES 01-09 15:12